=== PATIENT | female | born 1945 | race Caucasian/White ===

== ENCOUNTER 2016-12-30 20:40 | Observation (INO) ==
[2016-12-30] MEDS ORDERED: Ipratropium/Albuterol Neb 3 ML IH ONE (21:08)
--- NOTE | 2016-12-30 21:10 | Emergency Department Note ---
Disposition Clinical Impression: Acute exacerbation of chronic obstructive airways disease Disposition: Admitted As Inpatient Condition: Fair Referrals: NO,PCP [Primary Care Provider] - Forms: ED Satisfaction Letter Time of Disposition: 02:17 (collette GERMAIN HPI - General Chief Complaint: ED Shortness of Breath/Dyspnea Stated Complaint: short of breath Time Seen by Provider: 12/30/16 20:48 Source: patient Mode of arrival: ambulatory Limitations: no limitations Nursing Notes Reviewed: Yes Vital Signs Reviewed: Yes - History of Present Illness 71-year-old female comes to the emergency room complaining of shortness of breath is purposely worsened over the past week she has had cough she has tried using home aerosols to the point where she is using almost every hour she is unable to take steroids Pt Subjective Complaint: shortness of breath Onset (ago): week(s) (1) Context: other (copd) Severity: mild Consistency/Duration: constant Improves with: oxygen Worsens with: nothing Known history of: COPD Associated symptoms: Reports: wheezing. Denies: chest pain, pain with inspiration, fever, cough, sputum production, orthopnea, lower extremity pain, polyuria, polydipsia, parasthesias, palpitations, hemoptysis, diaphoresis, nausea/vomiting, syncope, abdominal pain, rash, sense of impending doom Treatment prior to arrival: oxygen, bronchodilator - Related Data Home Medications Medication Instructions Recorded Confirmed Albuterol Neb [Proventil Neb] 2.5 mg IH Q4HR 12/30/16 12/30/16 Albuterol Sulfate [Albuterol 12/30/16 Inhaler] Aspirin [Lo-Dose Aspirin EC] 81 mg PO 12/30/16 Calcium Citrate/Vitamin D3 1 each PO 12/30/16 [Calcium Citrate - Vit D Caplet] Cholecalciferol (D-3) [Vitamin D] 1,000 unit PO DAILY 12/30/16 12/30/16 Hydrochlorothiazide 25 mg PO DAILY 12/30/16 12/30/16 [place]-3 Fatty Acids [Fish Oil] 600 mg PO 12/30/16 Quinapril HCl [Accupril] 40 mg PO 12/30/16 Red Yeast Rice 600 mg PO 12/30/16 Tramadol HCl [Ultram] 50 mg PO BID PRN 12/30/16 12/30/16 Verapamil HCl [Verapamil ER] 240 mg PO 12/30/16 Allergies Allergy/AdvReac Type Severity Reaction Status Date / Time allantoin Allergy Swelling Verified 12/30/16 20:46 of Lip/Tongue/Throat bee venom protein (honey bee) Allergy Swelling Verified 12/30/16 20:46 of Lip/Tongue/Throat bupropion [From Wellbutrin] Allergy Rash Verified 12/30/16 20:46 Iodinated Contrast Media - Allergy Rash Verified 12/30/16 20:46 Oral and meloxicam Allergy Cramping Verified 12/30/16 20:46 of the Muscles prednisone Allergy Swelling Verified 12/30/16 20:46 of Lip/Tongue/Throat Sulfa (Sulfonamide Allergy Swelling Verified 12/30/16 20:46 Antibiotics) of Lip/Tongue/Throat All systems ED: reviewed and negative except as stated. Constitutional: Denies: fever, chills Eyes: Denies: eye pain ENT ED: Denies: throat pain Cardiovascular: Denies: chest pain, palpitations Respiratory: Reports: cough, dyspnea, wheezes Gastrointestinal: Denies: abdominal pain, nausea, vomiting Genitourinary: Denies: urgency Musculoskeletal: Denies: back pain Integumentary: Denies: abrasion Neurological: Denies: headache Psychiatric: Denies: anxiety Endocrine: Denies: fatigue Hematological/Lymphatic: Denies: easy bruising Allergic/Immunologic: Denies: urticaria Past Medical History - Past Medical History Attestation: Yes The following information was validated with the patient. Source: patient, old records reviewed, nursing notes reviewed Medical history: Reports: COPD, coronary artery disease, GERD, hyperlipidemia, hypertension, osteoporosis - Social History Smoking Status: Never smoker Alcohol use: Reports: none Drug use: Reports: none Physical Exam - General Limitations: no limitations General appearance: alert, anxious, in distress, cachectic - Head Head exam: atraumatic, normocephalic, normal inspection - Eye Eye exam: Present: normal appearance, PERRL, EOMI - ENT ENT exam: normal exam, normal oropharynx, mucous membranes moist, normal external ear exam - Neck Neck exam: Present: normal inspection, full ROM, trachea midline - Chest Chest inspection: Present: normal inspection, symmetric chest wall rise - Respiratory Respiratory exam: Present: normal lung sounds bilaterally - Cardiovascular Cardiovascular exam: Present: regular rate, normal rhythm, normal heart sounds - Abdominal Exam Abdominal exam: Present: soft, Non-Tender, normal bowel sounds. Absent: mass, pulsatile mass - Extremities Exam Extremities exam: Present: normal inspection, full ROM, normal capillary refill. Absent: tenderness, joint swelling, calf tenderness - Expanded Lower Extremity Exam Neurovascular/Tendon exam: Present: normal capillary refill, normal fine/light touch Gait: observed and normal - Back Exam Back exam: Present: normal inspection, full ROM. Absent: muscle spasm - Neurological Exam Neurological exam: Present: alert, oriented X3, CN II-XII intact, normal gait - Psychiatric Psychiatric exam: Present: anxious - Skin Skin exam: Present: warm, dry, intact, normal color Course Course Narrative: pt seen and examined and given aerosols offered IV steroids declined due the fact of prednisone allergy post aerosols now able to hear wheezing prior silent airway sounds recehecked again and still improved able to lie back at this time pt agrees to admission Vital Signs Temperature 97.2 F L 12/30/16 20:41 Pulse Rate 84 12/30/16 20:41 Respiratory Rate 22 12/30/16 20:41 Blood Pressure 153/90 12/30/16 20:41 O2 Sat by Pulse Oximetry 98 12/30/16 20:41 Temperature 97.2 F L 12/30/16 20:41 Pulse Rate 81 12/31/16 01:24 Respiratory Rate 16 12/31/16 01:24 Blood Pressure 161/94 12/31/16 01:24 O2 Sat by Pulse Oximetry 98 12/31/16 01:24 Oxygen Delivery Oxygen Delivery Nasal Cannula Shortness of Breath/Dyspnea - Differential Diagnosis Likely: acute exacerbation of chronic obstructive airways disease - Medical Records Medical records reviewed: Yes I reviewed the patient's medical records. - Lab Data Lab results reviewed: Yes I reviewed the patient's lab results. Result diagrams: 12/30/16 21:20 12/30/16 21:20 Lab Results 12/30/16 12/30/16 12/30/16 Range/Units 21:20 21:20 21:20 WBC 8.0 (4.3-11.1) K/mcL RBC 4.61 (3.82-4.97) M/mcL Hgb 13.9 (11.5-15.4) g/dL Hct 41.1 (35.3-44.9) % MCV 89.2 (83.0-100.0) fL MCH 30.2 (28.0-33.3) pg MCHC 33.8 (31.6-35.5) g/dL RDW 12.9 (11.5-14.5) % Plt Count 319 (140-400) K/mcL MPV 9.9 (9.4-12.4) fL Immature Gran % 0.5 (0-4) % Seg Neutrophils % 60.4 % Lymphocytes % 27.9 % Monocytes % 8.5 % Eosinophils % 2.5 % Basophils % 0.2 % Neutrophils # 4.9 (1.6-8.9) K/mcL Lymphocytes # 2.2 (0.6-4.6) K/mcL Monocytes # 0.7 (0.0-1.3) K/mcL Eosinophils # 0.2 (0.0-0.6) K/mcL Basophils # 0.0 (0.0-0.2) K/mcL PT (9.4-12.1) Seconds INR APTT 29.0 (26.0-36.0) Seconds Sodium 141 (136-145) mEq/L Potassium 3.6 (3.5-4.5) mEq/L Chloride 102 (98-109) mEq/L Carbon Dioxide 24 (19-29) mEq/L BUN 11 (7-20) mg/dL Creatinine 0.82 (0.57-1.11) mg/dL Est GFR ( Amer) > 60 (> 60) Est GFR (Non-Af Amer) > 60 (> 60) BUN/Creatinine Ratio 13 (6-26) Glucose 103 H (70-99) mg/dL Calculated Osmolality 292 (280-300) Calcium 9.5 (8.6-10.8) mg/dL Troponin I (0-0.03) ng/mL B-Natriuretic Peptide (0-100) pg/mL 12/30/16 12/30/16 12/30/16 Range/Units 21:20 21:20 21:20 WBC (4.3-11.1) K/mcL RBC (3.82-4.97) M/mcL Hgb (11.5-15.4) g/dL Hct (35.3-44.9) % MCV (83.0-100.0) fL MCH (28.0-33.3) pg MCHC (31.6-35.5) g/dL RDW (11.5-14.5) % Plt Count (140-400) K/mcL MPV (9.4-12.4) fL Immature Gran % (0-4) % Seg Neutrophils % % Lymphocytes % % Monocytes % % Eosinophils % % Basophils % % Neutrophils # (1.6-8.9) K/mcL Lymphocytes # (0.6-4.6) K/mcL Monocytes # (0.0-1.3) K/mcL Eosinophils # (0.0-0.6) K/mcL Basophils # (0.0-0.2) K/mcL PT 11.0 (9.4-12.1) Seconds INR 1.0 APTT (26.0-36.0) Seconds Sodium (136-145) mEq/L Potassium (3.5-4.5) mEq/L Chloride (98-109) mEq/L Carbon Dioxide (19-29) mEq/L BUN (7-20) mg/dL Creatinine (0.57-1.11) mg/dL Est GFR ( Amer) (> 60) Est GFR (Non-Af Amer) (> 60) BUN/Creatinine Ratio (6-26) Glucose (70-99) mg/dL Calculated Osmolality (280-300) Calcium (8.6-10.8) mg/dL Troponin I 0.01 (0-0.03) ng/mL B-Natriuretic Peptide 11 (0-100) pg/mL - Radiology Data Radiology results reviewed: Yes I reviewed the patient's radiology results. ITS Impressions Chest X-Ray 12/30/16 21:02 IMPRESSION: No acute cardiopulmonary disease. D/ / Derek Ayers MD / Derek Ayers MD Interpreting Provider: Derek Ayers MD - EKG Data EKG attestation: Yes I reviewed and interpreted this EKG. EKG results narrative: Normal sinus rhythm nonspecific T-wave rate 79 TN 142 QRS81 QT [address] segment elevation noted Critical Care Time Critical Care Time: No
[2016-12-30 21:27] LABS: Basophils % 0.2 %; Eosinophils # 0.2 K/mcL (0.0-0.6); Eosinophils % 2.5 %; Hematocrit 41.1 % (35.3-44.9); Hemoglobin 13.9 g/dL (11.5-15.4); Immature Granulocytes % 0.5 % (0-4); Lymphocytes # 2.2 K/mcL (0.6-4.6); Lymphocytes % 27.9 %; Mean Corpuscular HGB Conc 33.8 g/dL (31.6-35.5); Mean Corpuscular Hemoglobin 30.2 pg (28.0-33.3); Mean Corpuscular Volume 89.2 fL (83.0-100.0); Mean Platelet Volume 9.9 fL (9.4-12.4); Monocytes # 0.7 K/mcL (0.0-1.3); Monocytes % 8.5 %; Neutrophils # 4.9 K/mcL (1.6-8.9); Platelet Count 319 K/mcL (140-400); Red Blood Count 4.61 M/mcL (3.82-4.97); Red Cell Distribution Width 12.9 % (11.5-14.5); Segmented Neutrophils % 60.4 %
[2016-12-30 21:43] LABS: BUN/Creatinine Ratio 13 (6-26); Blood Urea Nitrogen 11 mg/dL (7-20); Calcium 9.5 mg/dL (8.6-10.8); Carbon Dioxide 24 mEq/L (19-29); Chloride 102 mEq/L (98-109); Glucose 103 mg/dL (70-99); Osmolality,Calculated 292 (280-300); Potassium 3.6 mEq/L (3.5-4.5); Sodium 141 mEq/L (136-145); eGFR For African Americans > 60 (> 60); eGFR For Non-African Americans > 60 (> 60)
[2016-12-31] MEDS ORDERED: *HR* HYDROcodone/Acet 5/325 mg TABLET PO ONE (01:08)
[2016-12-31] MEDS ORDERED: Naloxone 0.4 MG/ML INJ IVP PRN (03:49)
[2016-12-31] MEDS ORDERED: *HR* Dextrose 50 % in Water (Syg) 50 ML SYRINGE IVP PRN (03:49)
[2016-12-31] MEDS ORDERED: Dextrose Gel 15 GM PO PRN ×2 (03:49)
[2016-12-31] MEDS ORDERED: D5% in Water 1,000 ML IVC PRN (03:49)
[2016-12-31] MEDS: Ipratropium/Albuterol Neb 3 ML IH SCH ×2 (05:17→11:17)
[2016-12-31] MEDS: Insulin LISPRO 300 UNITS/3 ML VIAL SQ SCH ×2 (08:44→12:59)
[2016-12-31] MEDS: Cholecalciferol (D-3) 1,000 UNIT TABLET PO SCH (09:22)
[2016-12-31] MEDS: Verapamil ER (24 HR) 240 MG TABLET.ER PO SCH (13:26)
[2016-12-31] MEDS: Aspirin Enteric Coated 81 MG Tablet PO SCH (13:27)
[2016-12-31] MEDS: Lisinopril 20 MG TABLET PO SCH (13:27)
[2016-12-31] MEDS: Albuterol 2.5 MG/3 ML NEBULIZER IH PRN ×3 (15:58→23:08)
[2016-12-31] MEDS ORDERED: Budesonide/Formoterol 160/4.5 MDI IH SCH (17:10)
[2016-12-31] MEDS: Tiotropium 18 MCG inhalation IH SCH (18:27)
--- NOTE | 2016-12-31 19:34 | Electrocardiograph Report ---
[address] [address] Test Date: 2016-12-30 Pat Name: Clary Tamez Department: [id number] Room: [facility] Gender: F Cardiac Specialist: [id number] : 1945 Requested By: Tri Zapata Order Number: [id number] Reading MD: Rudolph Roy MD Measurements Intervals [place] Rate: 79 P: 72 [place]: 142 QRS: 67 QRSD: 81 T: 72 QT: 383 QTc: 417 Interpretive Statements SINUS RHYTHM Electronically Signed On 12-31-2016 19:32:34 EDT by Rudolph Roy MD
[2017-01-01] MEDS: Albuterol 2.5 MG/3 ML NEBULIZER IH PRN ×4 (04:00→21:09)
[2017-01-01] MEDS: Aspirin Enteric Coated 81 MG Tablet PO SCH (08:12)
[2017-01-01] MEDS: Cholecalciferol (D-3) 1,000 UNIT TABLET PO SCH (08:12)
[2017-01-01] MEDS: Lisinopril 20 MG TABLET PO SCH (08:13)
[2017-01-01] MEDS: Verapamil ER (24 HR) 240 MG TABLET.ER PO SCH (08:13)
[2017-01-01] MEDS ORDERED: FATTY ACIDS PO SCH (09:00)
[2017-01-01] MEDS ORDERED: OMEGA PO SCH (09:00)
[2017-01-01] MEDS: Tiotropium 18 MCG inhalation IH SCH (09:28)
[2017-01-01 09:52] LABS: Basophils # 0.1 K/mcL (0.0-0.2); Basophils % 0.6 %; Eosinophils # 0.3 K/mcL (0.0-0.6); Eosinophils % 3.5 %; Hematocrit 39.5 % (35.3-44.9); Hemoglobin 13.1 g/dL (11.5-15.4); Immature Granulocytes % 0.4 % (0-4); Lymphocytes % 26.3 %; Mean Corpuscular HGB Conc 33.2 g/dL (31.6-35.5); Mean Corpuscular Hemoglobin 30.1 pg (28.0-33.3); Mean Corpuscular Volume 90.8 fL (83.0-100.0); Mean Platelet Volume 10.2 fL (9.4-12.4); Monocytes # 0.8 K/mcL (0.0-1.3); Monocytes % 10.4 %; Neutrophils # 4.5 K/mcL (1.6-8.9); Platelet Count 305 K/mcL (140-400); Red Blood Count 4.35 M/mcL (3.82-4.97); Red Cell Distribution Width 13.2 % (11.5-14.5); Segmented Neutrophils % 58.8 %
--- NOTE | 2017-01-01 10:06 | Internal Med History&Physical ---
Date of Encounter: 12/31/16 Time of Encounter: 16:45 Assessment and Plan (1) Acute exacerbation of chronic obstructive airways disease Current visit: Yes Status: Acute She reports she has an allergy to steroids. I will add Spiriva and Singulair and continue Levaquin. Further workup will be done as needed. Internal Medicine - H&P: HPI Chief complaint: Dyspnea Admitted From: Home Plans for Post Hospital Care: Home History of present illness: Ms. Tamez is a 71 year old female who came to emergency room stating she had increasing dyspnea over the preceding week. She states she has had cough but minimal productivity. When she did not improve she came to emergency room. She was evaluated and felt to have exacerbation of COPD and was admitted to [facility] floor for ongoing care needs. Her respiratory history significant for having smoked from age [age] up to 1 pack per day. She has not had PFTs but has been told she has COPD. She does not wear home oxygen and has not been tested for sleep apnea. Past Med Surg Social Fam HX - Past Medical History Medical history: COPD, coronary artery disease, GERD, hyperlipidemia, hypertension, osteoporosis, other Psychiatric history: no psych history - Past Surgical History Surgical History: appendectomy, hysterectomy - Social History Smoking Status: Former smoker Smokeless Tobacco Status: No Alcohol use: none Drug use: none - Family History Mother Living Status: Age at : 87 Cause of : "Bad lung" Hx Family Cardiac Disorders: No Hx Family Respiratory Disorders: Yes (emphysema) Hx Family Cancer: No Hx Family GI Disorders: Yes (IBS) Hx Family Genitourinary Disorders: No Hx Family Endocrine Disorder: No Hx Family Musculoskeletal Disorders: No Hx Family Neuromuscular Disorders: No Hx Family Neurologic Disorders: No Hx Family HEENT Disorders: No Hx Family Autoimmune Disorders: No Hx Family Reproductive Disorders: No Hx Family Psychosocial Disorders: No Hx Family Medical Disorders: No Internal Medicine - H&P: Meds Albuterol Neb [Proventil Neb] 2.5 mg IH Q4HR 12/30/16 [History] Albuterol Sulfate [Albuterol Inhaler] 1 puff IH PRN PRN 12/30/16 [History] Aspirin [Lo-Dose Aspirin EC] 81 mg PO DAILY 12/30/16 [History] Calcium Citrate/Vitamin D3 [Calcium Citrate - Vit D Caplet] 1 each PO DAILY [History] Cholecalciferol (D-3) [Vitamin D] 1,000 unit PO DAILY 12/30/16 [History] Hydrochlorothiazide 25 mg PO DAILY 12/30/16 [History] [place]-3 Fatty Acids [Fish Oil] 600 mg PO DAILY 12/30/16 [History] Quinapril HCl [Accupril] 40 mg PO DAILY 12/30/16 [History] Tramadol HCl [Ultram] 50 mg PO BID PRN 12/30/16 [History] Verapamil HCl [Verapamil ER] 240 mg PO DAILY 12/30/16 [History] Allergies allantoin Allergy (Verified 12/30/16 20:46) Swelling of Lip/Tongue/Throat bee venom protein (honey bee) Allergy (Verified 12/30/16 20:46) Swelling of Lip/Tongue/Throat bupropion [From Wellbutrin] Allergy (Verified 12/30/16 20:46) Rash Iodinated Contrast Media - Oral and Allergy (Verified 12/30/16 20:46) Rash meloxicam Allergy (Verified 12/30/16 20:46) Cramping of the Muscles prednisone Allergy (Verified 12/30/16 20:46) Swelling of Lip/Tongue/Throat Sulfa (Sulfonamide Antibiotics) Allergy (Verified 12/30/16 20:46) Swelling of Lip/Tongue/Throat All Systems PM: A 10-system review of systems was performed and is negative for pertinent findings except as documented above in the HPI. Review of systems: General: Her weight has been stable since then July 2014 [facility] hospitalization Cardiovascular: He has a history of hypertension but denies NH heart failure angina DVT or pulmonary embolus. She thinks she had a heart catheter approximately 2003 in [place] which was unremarkable. Respiratory: As per history of present illness GI: She has a hiatal hernia with GERD. She has reticular disease of the colon. She denies disorders of her liver gallbladder or exocrine pancreas : No history of hematuria dysuria or kidney stones line neurologic: No history of large distribution strokes or seizures Endocrine: She has hyperlipidemia but no known diabetes or thyroid disease Hematology/oncology: She had cervical dysplasia with hysterectomy which was apparently curative several years ago. She denies other internal malignancies or anemia Psychiatric: She denies anxiety depression or other mental health issues Musculoskeletal: She has DJD and osteoporosis but no known gout - Constitutional Vitals: Temp Pulse Resp BP Pulse Ox 97.9 F 86 18 152/64 100 01/01/17 06:12 01/01/17 06:12 01/01/17 06:12 01/01/17 06:12 01/01/17 06:36 Exam: Gen.: She is a well developed well-nourished female who appears dyspneic HEENT head is atraumatic and normal cephalic. Eyes: EOMI. There is no scleral icterus. Mouth: Mucosa is moist. Neck: Supple and nontender. There is no thyromegaly or adenopathy noted. Heart: Regular without murmurs gallops or ectopics. Lungs: She has prolonged expiratory phase and mild diffuse wheezing. No inspiratory crackles are heard. Abdomen: Soft and nontender. No masses or guarding are noted. Extremities: There is no cyanosis edema or clubbing noted. Dorsalis pedis and posttibial pulses are 1-2 over 2 bilaterally. Neurologic: Mental status: She is talkative and a good historian. Cranial nerves: Smile is symmetric. Forehead wrinkles bilaterally. Tongue protrudes midline. EOMI. Motor: There is no pronator drift. Cerebellar: Finger to nose is intact bilaterally. Skin: Warm and dry Internal Med - H&P Results - Labs CBC & Chem 7: 01/01/17 07:30 12/30/16 21:20 Labs: Short CBC 01/01/17 Range/Units 07:30 WBC 7.7 (4.3-11.1) K/mcL Hgb 13.1 (11.5-15.4) g/dL Hct 39.5 (35.3-44.9) % Plt Count 305 (140-400) K/mcL Neutrophils # 4.5 (1.6-8.9) K/mcL
--- NOTE | 2017-01-01 10:20 | Internal Med Progress Note ---
Date of Encounter: 01/01/17 Time of Encounter: 10:10 - Assessment and plan (1) Acute exacerbation of chronic obstructive airways disease Current Visit: Yes Status: Acute Assessment and plan: Continue Levaquin, Singulair, Spiriva, and prn albuterol. - Subjective Interval history: January 01. She has no new complaints and states she feels improved but not back to her baseline. She reports she had an allergic reaction to Wellbutrin in the past and went to the emergency room where she received steroids which seemed to worsen her allergic response. She denies use of steroids before or after that single episode. - Constitutional Vitals: Temp Pulse Resp BP Pulse Ox 97.9 F 86 18 152/64 100 01/01/17 06:12 01/01/17 06:12 01/01/17 06:12 01/01/17 06:12 01/01/17 06:36 Exam: She is resting more Comfortably in bed. She has audible expiratory wheezing with prolonged expiratory phase still present. I reviewed her medications and lab results. Internal Medicine: Result - Labs CBC & Chem 7: 01/01/17 07:30 12/30/16 21:20 Labs: Short CBC 01/01/17 Range/Units 07:30 WBC 7.7 (4.3-11.1) K/mcL Hgb 13.1 (11.5-15.4) g/dL Hct 39.5 (35.3-44.9) % Plt Count 305 (140-400) K/mcL Neutrophils # 4.5 (1.6-8.9) K/mcL - ABG Interpretation ABG results: PT/INR, D-dimer PT 11.0 Seconds (9.4-12.1) 12/30/16 21:20 Consult Discharge Plan - Plan Referrals: NO,PCP [Primary Care Provider] - 1 week
[2017-01-02] MEDS: Ipratropium/Albuterol Neb 3 ML IH SCH (08:02)
[2017-01-02] MEDS: Insulin LISPRO 300 UNITS/3 ML VIAL SQ SCH (08:02)
[2017-01-02] MEDS: Aspirin Enteric Coated 81 MG Tablet PO SCH (09:10)
[2017-01-02] MEDS: Verapamil ER (24 HR) 240 MG TABLET.ER PO SCH (09:12)
[2017-01-02] MEDS: Cholecalciferol (D-3) 1,000 UNIT TABLET PO SCH (09:12)
[2017-01-02] MEDS: Lisinopril 20 MG TABLET PO SCH (09:12)
[2017-01-02] MEDS: Albuterol 2.5 MG/3 ML NEBULIZER IH PRN ×4 (09:15→21:25)
[2017-01-02] MEDS: Tiotropium 18 MCG inhalation IH SCH (09:17)
--- NOTE | 2017-01-02 09:47 | Internal Med Progress Note ---
Date of Encounter: 01/02/17 Time of Encounter: 09:35 - Assessment and plan (1) Acute exacerbation of chronic obstructive airways disease Current Visit: Yes Status: Acute Assessment and plan: January 01. Continue Levaquin, Singulair, Spiriva, and prn albuterol. January 02. Will give IV Solu-Medrol and inhaled Symbicort in addition to continuing previously ordered medications. Will also give Benadryl. - Subjective Interval history: January 01. She has no new complaints and states she feels improved but not back to her baseline. She reports she had an allergic reaction to Wellbutrin in the past and went to the emergency room where she received steroids which seemed to worsen her allergic response. She denies use of steroids before or after that single episode. January 02. She feels minimally improved. She admits she is not getting much better and has decided she should try steroids again to see if further improvement can be gained. - Constitutional Vitals: Temp Pulse Resp BP Pulse Ox 97.8 F 80 18 115/70 95 01/02/17 07:59 01/02/17 07:59 01/02/17 09:19 01/02/17 07:59 01/02/17 09:19 Exam: She is sitting up in bed and appears dyspneic at rest. Her speech is very appropriate and logical and she understands she is asking for steroids despite stating she had a "allergic reaction" to steroids in the past. Internal Medicine: Result - Labs CBC & Chem 7: 01/01/17 07:30 12/30/16 21:20 Labs: Short CBC 01/01/17 Range/Units 07:30 WBC 7.7 (4.3-11.1) K/mcL Hgb 13.1 (11.5-15.4) g/dL Hct 39.5 (35.3-44.9) % Plt Count 305 (140-400) K/mcL Neutrophils # 4.5 (1.6-8.9) K/mcL - ABG Interpretation ABG results: PT/INR, D-dimer PT 11.0 Seconds (9.4-12.1) 12/30/16 21:20 Consult Discharge Plan - Plan Referrals: NO,PCP [Primary Care Provider] - 1 week
[2017-01-02] MEDS: Benzonatate 100 MG CAPSULE PO SCH ×3 (11:13→20:59)
[2017-01-02] MEDS: Budesonide/Formoterol 160/4.5 MDI IH SCH ×2 (13:03→21:25)
[2017-01-03] MEDS: Albuterol 2.5 MG/3 ML NEBULIZER IH PRN ×5 (05:20→21:24)
[2017-01-03] MEDS: Budesonide/Formoterol 160/4.5 MDI IH SCH ×2 (08:28→21:24)
[2017-01-03] MEDS: Tiotropium 18 MCG inhalation IH SCH (08:28)
[2017-01-03] MEDS: Aspirin Enteric Coated 81 MG Tablet PO SCH (08:40)
[2017-01-03] MEDS: Verapamil ER (24 HR) 240 MG TABLET.ER PO SCH (08:40)
[2017-01-03] MEDS: Benzonatate 100 MG CAPSULE PO SCH ×3 (08:41→21:12)
[2017-01-03] MEDS: Lisinopril 20 MG TABLET PO SCH (08:41)
[2017-01-03] MEDS: Cholecalciferol (D-3) 1,000 UNIT TABLET PO SCH (08:41)
--- NOTE | 2017-01-03 09:15 | Internal Med Progress Note ---
Date of Encounter: 01/03/17 Time of Encounter: 09:05 - Assessment and plan (1) Acute exacerbation of chronic obstructive airways disease Current Visit: Yes Status: Acute Assessment and plan: January 01. Continue Levaquin, Singulair, Spiriva, and prn albuterol. January 02. Will give IV Solu-Medrol and inhaled Symbicort in addition to continuing previously ordered medications. Will also give Benadryl. January 03. Continue Solu-Medrol, Levaquin, albuterol nebs, Singulair, Symbicort , and Spiriva. - Subjective Interval history: January 01. She has no new complaints and states she feels improved but not back to her baseline. She reports she had an allergic reaction to Wellbutrin in the past and went to the emergency room where she received steroids which seemed to worsen her allergic response. She denies use of steroids before or after that single episode. January 02. She feels minimally improved. She admits she is not getting much better and has decided she should try steroids again to see if further improvement can be gained. January 03. Her dyspnea is minimally changed. She reports her cough has little productivity. - Constitutional Vitals: Temp Pulse Resp BP Pulse Ox 97.6 F 99 22 129/77 97 01/03/17 06:32 01/03/17 06:32 01/03/17 08:29 01/03/17 06:32 01/03/17 08:29 Exam: She has prolonged expiratory phase and mild diffuse wheezing. Her heart is regular without ectopics. Her affect is bright and cheerful. I reviewed her vitals, labs, and medications Internal Medicine: Result - Labs CBC & Chem 7: 01/01/17 07:30 12/30/16 21:20 - ABG Interpretation ABG results: PT/INR, D-dimer PT 11.0 Seconds (9.4-12.1) 12/30/16 21:20 Consult Discharge Plan - Plan Referrals: NO,PCP [Primary Care Provider] - 1 week
[2017-01-03] MEDS: Ondansetron ODT 4 MG TAB.RAPDIS SL PRN (13:22)
[2017-01-04] MEDS: Albuterol 2.5 MG/3 ML NEBULIZER IH PRN ×3 (04:17→11:15)
[2017-01-04] MEDS: Verapamil ER (24 HR) 240 MG TABLET.ER PO SCH (08:28)
[2017-01-04] MEDS: Ondansetron ODT 4 MG TAB.RAPDIS SL PRN (08:29)
[2017-01-04] MEDS: Aspirin Enteric Coated 81 MG Tablet PO SCH (08:30)
[2017-01-04] MEDS: Benzonatate 100 MG CAPSULE PO SCH (08:30)
[2017-01-04] MEDS: Cholecalciferol (D-3) 1,000 UNIT TABLET PO SCH (08:30)
[2017-01-04] MEDS: Lisinopril 20 MG TABLET PO SCH (08:31)
[2017-01-04] MEDS: Tiotropium 18 MCG inhalation IH SCH (08:47)
[2017-01-04] MEDS: Budesonide/Formoterol 160/4.5 MDI IH SCH (08:47)
--- NOTE | 2017-01-04 10:22 | Discharge Summary ---
Date of Encounter: 01/04/17 Time of Encounter: 10:05 - Discharge Diagnosis (1) Acute exacerbation of chronic obstructive airways disease Priority: Primary Status: Acute - Discharge Medications Prescriptions: Benzonatate [Tessalon] 100 mg PO TID #6 capsule Budesonide/Formoterol 160/4.5 [Symbicort 160/4.5] 2 puff IH BIDR #1 inhaler Levofloxacin [Levaquin] 500 mg PO DAILY #2 tablet Montelukast [Singulair] 10 mg PO DAILY #30 tablet PredniSONE 20 mg PO BIDWM #10 tablet Tiotropium [Spiriva] 18 mcg IH DAILY #30 inh Home Medications: Albuterol Neb [Proventil Neb] 2.5 mg IH Q4HR 12/30/16 [History] Albuterol Sulfate [Albuterol Inhaler] 1 puff IH PRN PRN 12/30/16 [History] Aspirin [Lo-Dose Aspirin EC] 81 mg PO DAILY 12/30/16 [History] Calcium Citrate/Vitamin D3 [Calcium Citrate - Vit D Caplet] 1 each PO DAILY [History] Cholecalciferol (D-3) [Vitamin D] 1,000 unit PO DAILY 12/30/16 [History] Hydrochlorothiazide 25 mg PO DAILY 12/30/16 [History] [place]-3 Fatty Acids [Fish Oil] 600 mg PO DAILY 12/30/16 [History] Quinapril HCl [Accupril] 40 mg PO DAILY 12/30/16 [History] Tramadol HCl [Ultram] 50 mg PO BID PRN 12/30/16 [History] Verapamil HCl [Verapamil ER] 240 mg PO DAILY 12/30/16 [History] Benzonatate [Tessalon] 100 mg PO TID #6 capsule 01/04/17 [Rx] Budesonide/Formoterol 160/4.5 [Symbicort 160/4.5] 2 puff IH BIDR #1 inhaler 09/22 [Rx] Levofloxacin [Levaquin] 500 mg PO DAILY #2 tablet 01/04/17 [Rx] Montelukast [Singulair] 10 mg PO DAILY #30 tablet 01/04/17 [Rx] PredniSONE 20 mg PO BIDWM #10 tablet 01/04/17 [Rx] Tiotropium [Spiriva] 18 mcg IH DAILY #30 inh 01/04/17 [Rx] Allergies/Adverse Reactions: Allergies allantoin Allergy (Verified 12/30/16 20:46) Swelling of Lip/Tongue/Throat bee venom protein (honey bee) Allergy (Verified 12/30/16 20:46) Swelling of Lip/Tongue/Throat bupropion [From Wellbutrin] Allergy (Verified 12/30/16 20:46) Rash Iodinated Contrast Media - Oral and Allergy (Verified 12/30/16 20:46) Rash meloxicam Allergy (Verified 12/30/16 20:46) Cramping of the Muscles prednisone Allergy (Verified 12/30/16 20:46) Swelling of Lip/Tongue/Throat Sulfa (Sulfonamide Antibiotics) Allergy (Verified 12/30/16 20:46) Swelling of Lip/Tongue/Throat Date of admission: 12/31/16 02:04 Primary care physician: Desmond Maier M.D. - Patient Status Disposition: Home, Self-Care Condition: Fair Functional capacity at discharge: independent ambulation Overall status at discharge: patient is progressing back to baseline - Discharge Instructions Follow Up With: Desmond Maier MD [Partnered Physician] - 1 week - Diet and Activity Activity: resume usual activities as tolerated Diet: advance to your usual diet Hospital course: Ms. Tamez is a 71 year old female who came to emergency room stating she had increasing dyspnea over the preceding week. She states she has had cough but minimal productivity. When she did not improve she came to emergency room. She was evaluated and felt to have exacerbation of COPD and was admitted to [facility] floor for ongoing care needs. Initial orders were written by the emergency room physician. I saw her on January 01 and performed the history and physical. She initially reported she had an allergy to steroids. She was given Spiriva, Singulair, and Levaquin. Lactobacillus was also given during hospitalization. On January 02 she was unimproved and stated she had decided she should try steroids again to see if she could have further improvement. She was started on Symbicort and Solu- Medrol with Benadryl pretreatment before the first dose. She had no allergic reactions at all and continued the use of both of inhaled and IV steroids during her hospital stay. Her dyspnea gradually lessened and on January 04 she felt stable for discharge home. Room air oximetry showed saturation of 91% so supplemental oxygen will not be ordered. She will follow with her PCP Dr. Maier as scheduled January 05. - Time Spent with Patient Total time spent providing and/or coordinating discharge services: - Constitutional Vitals: Temp Pulse Resp BP Pulse Ox 97.8 F 91 20 146/80 96 01/04/17 07:23 01/04/17 07:23 01/04/17 08:43 01/04/17 07:23 01/04/17 09:02
[2017-01-04 10:37] VITALS: BP 146/79
== END 2017-01-04 12:50 | disposition home or self-care (01) ==
LOC: INPPIK 20:40 → EMEROOPIK 20:40 → INPPIK 12-31 03:01
PROVIDERS: ADMIT Internal Medicine; ATTEND Internal Medicine

== ENCOUNTER 2018-04-03 14:56 | Inpatient (IN) ==
[2018-04-03] MEDS ORDERED: Ipratropium/Albuterol Neb 3 ML IH ONE ×2 (15:21→15:22)
[2018-04-03] MEDS ORDERED: methylPREDNISolone 125 MG/2 ML VIAL IM STA (15:21)
--- NOTE | 2018-04-03 15:48 | Emergency Department Note ---
Disposition Clinical Impression: Acute exacerbation of chronic obstructive airways disease Disposition: Admitted As Inpatient Condition: Good SOB HPI - General Chief Complaint: ED Shortness of Breath/Dyspnea Stated Complaint: SHORTNESS OF BREATH Time Seen by Provider: 04/03/18 15:06 Source: patient Mode of arrival: private vehicle Limitations: no limitations Nursing Notes Reviewed: Yes Vital Signs Reviewed: Yes - History of Present Illness Patient presents to the ED complaining of shortness of breath is not going on for approximately 1 week and worsening over the past 3 days. She states her chest feels tight and she has been wheezing. She reports a cough occasionally productive of white phlegm. She has had some rhinorrhea and sneezing but no nasal congestion or sore throat. No fever or chills. No lower extremity swelling. She has a history of COPD and reports compliance with all of her medications with her last breathing treatment at home around 2 PM today. She is on Advair, Flovent and Spiriva and uses albuterol as needed. She does not wear home oxygen. She has not been on steroids since January. No recent admissions for COPD exacerbations. - Related Data Home Medications Medication Instructions Recorded Confirmed Albuterol Neb [Proventil Neb] 2.5 mg IH Q4HR 12/30/16 04/03/18 Albuterol Sulfate [Albuterol 1 puff IH PRN PRN 12/30/16 04/03/18 Inhaler] Aspirin [Lo-Dose Aspirin EC] 81 mg PO DAILY 12/30/16 04/03/18 Calcium Citrate/Vitamin D3 1 each PO DAILY 12/30/16 04/03/18 [Calcium Citrate - Vit D Caplet] Cholecalciferol (D-3) [Vitamin D] 1,000 unit PO DAILY 12/30/16 04/03/18 [place]-3 Fatty Acids [Fish Oil] 600 mg PO DAILY 12/30/16 04/03/18 Quinapril HCl [Accupril] 40 mg PO DAILY 12/30/16 04/03/18 Verapamil HCl [Verapamil ER] 240 mg PO DAILY 12/30/16 04/03/18 hydroCHLOROthiazide 25 mg PO DAILY 12/30/16 04/03/18 [Hydrochlorothiazide] Previous Rx's Medication Instructions Recorded Budesonide/Formoterol 160/4.5 2 puff IH BIDR #1 inhaler 01/04/17 [Symbicort 160/4.5] Tiotropium [Spiriva] 18 mcg IH DAILY #30 inh 01/04/17 Allergies Allergy/AdvReac Type Severity Reaction Status Date / Time allantoin Allergy Swelling Verified 12/30/16 20:46 of Lip/Tongue/Throat bee venom protein (honey bee) Allergy Swelling Verified 12/30/16 20:46 of Lip/Tongue/Throat bupropion [From Wellbutrin] Allergy Rash Verified 12/30/16 20:46 Iodinated Contrast- Oral and Allergy Rash Verified 12/30/16 20:46 IV Dye [Iodinated Contrast Media - Oral and] meloxicam Allergy Cramping Verified 12/30/16 20:46 of the Muscles Sulfa (Sulfonamide Allergy Swelling Verified 12/30/16 20:46 Antibiotics) of Lip/Tongue/Throat Constitutional: Denies: fever, chills, weakness, weight change Eyes: Denies: eye pain, eye discharge, vision change ENT ED: Denies: ear pain, throat pain, dental pain, hearing loss, epistaxis, congestion, dysphagia Cardiovascular: Denies: chest pain, palpitations, dyspnea on exertion, edema, syncope Respiratory: Reports: cough, dyspnea, wheezes. Denies: hemoptysis, stridor Gastrointestinal: Denies: abdominal pain, nausea, vomiting, diarrhea, constipation, hematemesis, melena, hematochezia Genitourinary: Denies: dysuria, frequency, hematuria, discharge Musculoskeletal: Denies: back pain, neck pain, arthralgia, myalgia Integumentary: Denies: rash, abrasion, lesions Neurological: Denies: headache, weakness, numbness, paresthesias, confusion, abnormal gait, vertigo Psychiatric: Denies: anxiety, depression, suicidal thoughts, homicidal thoughts , auditory hallucinations, visual hallucinations Endocrine: Denies: fatigue Hematological/Lymphatic: Denies: easy bleeding, easy bruising Allergic/Immunologic: Denies: facial swelling, urticaria Past Medical History - Past Medical History Medical history: Reports: COPD, coronary artery disease, GERD, hyperlipidemia, hypertension, osteoporosis, other Surgical history: Reports: appendectomy, hysterectomy Psychiatric history: Reports: no psych history - Social History Smoking Status: Former smoker Smokeless Tobacco Status: No Alcohol use: Reports: none Drug use: Reports: none Physical Exam - General Limitations: no limitations General appearance: alert, in no apparent distress - Head Head exam: atraumatic, normocephalic, normal inspection - Eye Eye exam: Present: normal appearance, PERRL, EOMI - ENT ENT exam: normal exam, normal oropharynx, mucous membranes moist - Neck Neck exam: Present: normal inspection, full ROM, trachea midline - Chest Chest inspection: Present: normal inspection, symmetric chest wall rise - Respiratory Respiratory exam: Present: wheezes - Expanded Respiratory Exam Location: wheezes: Left, Right, Upper, Lower, decreased breath sounds: Left, Right, Upper, Lower - Cardiovascular Cardiovascular exam: Present: regular rate, normal rhythm, normal heart sounds - Abdominal Exam Abdominal exam: Present: soft, Non-Tender. Absent: tenderness, distention, guarding, rebound, rigidity - Extremities Exam Extremities exam: Present: normal inspection, full ROM. Absent: tenderness, pedal edema - Back Exam Back exam: Present: normal inspection, full ROM. Absent: tenderness - Neurological Exam Neurological exam: Present: alert, oriented X3 - Psychiatric Psychiatric exam: Present: normal affect, normal mood - Skin Skin exam: Present: warm, dry, intact, normal color Course Course Narrative: Patient presents the ED with increasing shortness of breath and wheezing over the past few days with history of COPD. She is audibly wheezing with poor aeration on exam but is not hypoxic or in acute distress. Will give nebulizer treatments, steroids and obtain chest x-ray. I suspect COPD exacerbation versus less likely pneumonia or CHF. - Reevaluation(s) Reevaluation #1: Patient reports feeling better than when she arrives but still feels tight and is still wheezing. On repeat exam she does have improved air movement but is still wheezing. Oxygen saturations have remained in the mid to high 90s on 2 L nasal cannula. Chest x-ray is normal. Discussed with patient admission for continued aggressive treatment and she is in agreement. We have paged the hospitalist on-call, Dr. Lopez. Time: 16:30 Reevaluation #2: We have re-paged and left messages for the hospitalist. Still awaiting callback at this time. Time: 17:29 Reevaluation #3: I spoke to the hospitalist on-call, Dr. Lopez, who has agreed to accept the patient. Time: 17:35 Vital Signs Temperature 98.4 F 04/03/18 14:58 Pulse Rate 105 04/03/18 14:58 Respiratory Rate 20 04/03/18 14:58 Blood Pressure 189/103 04/03/18 14:58 O2 Sat by Pulse Oximetry 97 04/03/18 14:58 Temperature 97.5 F L 04/04/18 02:53 Pulse Rate 105 04/04/18 02:53 Respiratory Rate 22 04/04/18 02:53 Blood Pressure 177/92 04/04/18 02:53 O2 Sat by Pulse Oximetry 97 04/04/18 02:53 Oxygen Delivery Oxygen Delivery Nasal Cannula Shortness of Breath/Dyspnea - Differential Diagnosis Likely: acute exacerbation of chronic obstructive airways disease. Unlikely: congestive heart failure, pneumonia, pulmonary embolism - Medical Records Medical records reviewed: Yes I reviewed the patient's medical records. - Lab Data Result diagrams: 04/03/18 19:55 04/03/18 19:55 - Radiology Data Radiology results reviewed: Yes I reviewed the patient's radiology results. ITS Impressions Chest X-Ray 04/03/18 15:22 IMPRESSION: No acute cardiopulmonary disease. D/ / Katelynn Marie MD / Katelynn Marie MD Interpreting Provider: Katelynn Marie MD - EKG Data EKG attestation: Yes I reviewed and interpreted this EKG. EKG shows normal: Reports: sinus rhythm Rate: Reports: normal, tachycardia Rhythm: Reports: NSR [place]/QRS: Reports: normal Interpretation: Reports: no acute changes, nonspecific ST-T wave changes
[2018-04-03] MEDS ORDERED: Naloxone 0.4 MG/ML INJ IVP PRN ×2 (17:53→18:20)
[2018-04-03] MEDS ORDERED: Ipratropium/Albuterol Neb 3 ML IH SCH (19:00)
[2018-04-03] MEDS ORDERED: Nitroglycerin 0.4 MG TAB.SUBL SL PRN (19:29)
[2018-04-03] MEDS ORDERED: *HR* Morphine 2 MG/ML SYRINGE IVP PRN (19:30)
[2018-04-03] MEDS ORDERED: Aspirin 325 MG TABLET PO ONE (19:30)
[2018-04-03 20:05] LABS: Basophils % 0.2 %; Hematocrit 37.2 % (35.3-44.9); Hemoglobin 12.3 g/dL (11.5-15.4); Immature Granulocytes % 0.6 % (0-4); Lymphocytes # 0.6 K/mcL (0.6-4.6); Lymphocytes % 6.1 %; Mean Corpuscular HGB Conc 33.1 g/dL (31.6-35.5); Mean Corpuscular Hemoglobin 29.4 pg (28.0-33.3); Mean Corpuscular Volume 88.8 fL (83.0-100.0); Monocytes # 0.2 K/mcL (0.0-1.3); Monocytes % 2.1 %; Neutrophils # 9.2 K/mcL (1.6-8.9); Platelet Count 287 K/mcL (140-400); Red Blood Count 4.19 M/mcL (3.82-4.97); Red Cell Distribution Width 13.3 % (11.5-14.5)
[2018-04-03] MEDS: Budesonide/Formoterol 160/4.5 MDI IH SCH (20:11)
[2018-04-03] MEDS: Ipratropium/Albuterol Neb 3 ML IH SCH (20:11)
[2018-04-03 20:20] LABS: Alanine Aminotransferase 19 Units/L (7-52); Albumin 4.8 g/dL (3.5-5.7); Albumin/Globulin Ratio 1.9 (1.1-2.2); Alkaline Phosphatase 53 Units/L (34-104); Aspartate Amino Transferase 17 Units/L (13-39); BUN/Creatinine Ratio 16 (6-26); Bilirubin,Total 0.2 mg/dL (0.3-1.0); Blood Urea Nitrogen 15 mg/dL (8-23); Calcium 9.5 mg/dL (8.6-10.3); Carbon Dioxide 26 mEq/L (23-29); Chloride 102 mEq/L (98-107); Globulin 2.5 g/dL (2.4-3.5); Glucose 169 mg/dL (70-105); Magnesium 1.7 mg/dL (1.6-2.6); Osmolality,Calculated 295 (280-300); Potassium 3.5 mEq/L (3.5-5.1); Sodium 140 mEq/L (136-145); Total Protein 7.3 g/dL (6.4-8.9); eGFR For African Americans > 60 (> 60); eGFR For Non-African Americans > 60 (> 60)
[2018-04-04] MEDS: Ipratropium/Albuterol Neb 3 ML IH SCH ×3 (00:02→08:06)
[2018-04-04 02:59] LABS: Basophils % 0.1 %; Hemoglobin 12.3 g/dL (11.5-15.4); Immature Granulocytes % 1.8 % (0-4); Lymphocytes # 0.6 K/mcL (0.6-4.6); Lymphocytes % 5.1 %; Mean Corpuscular HGB Conc 33.2 g/dL (31.6-35.5); Mean Corpuscular Hemoglobin 29.8 pg (28.0-33.3); Mean Corpuscular Volume 89.6 fL (83.0-100.0); Mean Platelet Volume 10.1 fL (9.4-12.4); Monocytes # 0.2 K/mcL (0.0-1.3); Neutrophils # 10.3 K/mcL (1.6-8.9); Platelet Count 278 K/mcL (140-400); Red Blood Count 4.13 M/mcL (3.82-4.97); Red Cell Distribution Width 13.4 % (11.5-14.5)
[2018-04-04 03:11] LABS: BUN/Creatinine Ratio 16 (6-26); Blood Urea Nitrogen 13 mg/dL (8-23); Calcium 9.6 mg/dL (8.6-10.3); Carbon Dioxide 23 mEq/L (23-29); Chloride 102 mEq/L (98-107); Glucose 182 mg/dL (70-105); Osmolality,Calculated 293 (280-300); Potassium 3.7 mEq/L (3.5-5.1); Sodium 139 mEq/L (136-145); eGFR For African Americans > 60 (> 60); eGFR For Non-African Americans > 60 (> 60)
[2018-04-04] MEDS: cefTRIAXone 1,000 MG in Water for inj. (sterile) 20 ML 10 ML IVP SCH (06:53)
[2018-04-04] MEDS: Azithromycin 500 MG in D5% in Water 250 ML IVPB SCH (06:53)
[2018-04-04] MEDS: hydroCHLOROthiazide 25 MG TABLET PO SCH (06:54)
[2018-04-04] MEDS: Lisinopril 20 MG TABLET PO SCH (06:54)
[2018-04-04] MEDS: Verapamil ER (24 HR) 240 MG TABLET.ER PO SCH (07:56)
[2018-04-04] MEDS: Aspirin Enteric Coated 81 MG Tablet PO SCH (07:56)
[2018-04-04] MEDS: Cholecalciferol (D-3) 1,000 UNIT TABLET PO SCH (07:56)
[2018-04-04] MEDS: Lactobacillus 1 EACH CAP.SPRINK PO SCH ×2 (07:56→21:38)
[2018-04-04] MEDS: (Omega-3 Fatty Acids [Fish Oil] 600 MG) PO SCH (08:02)
[2018-04-04] MEDS: Tiotropium 18 MCG inhalation IH SCH (10:20)
[2018-04-04] MEDS: Budesonide/Formoterol 160/4.5 MDI IH SCH ×2 (10:20→21:16)
--- NOTE | 2018-04-04 11:09 | Internal Med History&Physical ---
Date of Encounter: 04/04/18 Time of Encounter: 10:45 Assessment and Plan (1) Acute exacerbation of chronic obstructive airways disease Current visit: Yes Status: Acute She was given Rocephin, Zithromax, and Solu-Medrol in emergency room. These will be continued with lactobacillus. Further workup will be done as needed. (2) Hypertension Current visit: Yes Status: Chronic Continue Accupril and HCTZ. Qualifiers: Hypertension type: essential hypertension Qualified Code(s): I10 - Essential (primary) hypertension Internal Medicine - H&P: HPI Chief complaint: Dyspnea Admitted From: Emergency Dept Plans for Post Hospital Care: Home History of present illness: Ms. Tamez is a 72 year old female who came to emergency room complaining of increased dyspnea over the past week with significant worsening over the past 3 days. She reports a cough that was nonproductive. She had a headache. She denies pain, nausea vomiting or diarrhea. She was evaluated in emergency room and felt to have exacerbation of COPD. She was admitted to [facility] floor for ongoing care needs. Her respiratory history is significant for having smoked from age [age] up to 1 pack per day. She has not had PFTs but has been told she has COPD. She does not wear home oxygen and has not been tested for sleep apnea. Past Med Surg Social Fam HX - Past Medical History Medical history: COPD, coronary artery disease, GERD, hyperlipidemia, hypertension, osteoporosis, other Additional medical history: DIVERTICULITIS Psychiatric history: no psych history - Past Surgical History Surgical History: appendectomy, hysterectomy Additional surgical history: BENIGN TUMOR REMOVED FROM EYE - Social History Smoking Status: Former smoker Smokeless Tobacco Status: No Alcohol use: none Drug use: none - Family History Mother Living Status: Hx Family Cardiac Disorders: No Hx Family Respiratory Disorders: Yes (emphysema) Hx Family Cancer: No Hx Family GI Disorders: Yes (IBS) Hx Family Endocrine Disorder: No Hx Family Neuromuscular Disorders: No Hx Family Neurologic Disorders: No Hx Family HEENT Disorders: No Hx Family Autoimmune Disorders: No Internal Medicine - H&P: Meds Albuterol Neb [Proventil Neb] 2.5 mg IH Q4HR 12/30/16 [History] Albuterol Sulfate [Albuterol Inhaler] 1 puff IH PRN PRN 12/30/16 [History] Aspirin [Lo-Dose Aspirin EC] 81 mg PO DAILY 12/30/16 [History] Calcium Citrate/Vitamin D3 [Calcium Citrate - Vit D Caplet] 1 each PO DAILY [History] Cholecalciferol (D-3) [Vitamin D] 1,000 unit PO DAILY 12/30/16 [History] [place]-3 Fatty Acids [Fish Oil] 600 mg PO DAILY 12/30/16 [History] Quinapril HCl [Accupril] 40 mg PO DAILY 12/30/16 [History] Verapamil HCl [Verapamil ER] 240 mg PO DAILY 12/30/16 [History] hydroCHLOROthiazide [Hydrochlorothiazide] 25 mg PO DAILY 12/30/16 [History] Budesonide/Formoterol 160/4.5 [Symbicort 160/4.5] 2 puff IH BIDR #1 inhaler 09/22 [Rx] Tiotropium [Spiriva] 18 mcg IH DAILY #30 inh 01/04/17 [Rx] 3 Allergy/AdvReac Type Severity Reaction Status Date / Time allantoin Allergy Swelling Verified 12/30/16 20:46 of Lip/Tongue/Throat bee venom protein (honey bee) Allergy Swelling Verified 12/30/16 20:46 of Lip/Tongue/Throat bupropion [From Wellbutrin] Allergy Rash Verified 12/30/16 20:46 Iodinated Contrast- Oral and Allergy Rash Verified 12/30/16 20:46 IV Dye [Iodinated Contrast Media - Oral and] meloxicam Allergy Cramping Verified 12/30/16 20:46 of the Muscles Sulfa (Sulfonamide Allergy Swelling Verified 12/30/16 20:46 Antibiotics) of Lip/Tongue/Throat All Systems PM: A 10-system review of systems was performed and is negative for pertinent findings except as documented above in the HPI. Review of systems: General: Her weight has been stable since the December 2016 [facility] hospitalization at approximate 74 kg. Cardiovascular: He has a history of hypertension but denies ND heart failure angina DVT or pulmonary embolus. She thinks she had a heart cath approximately 2013 which did not result in intervention. Respiratory: As per history of present illness GI: She has a hiatal hernia with GERD. She has diverticular disease of the colon. She denies disorders of her liver gallbladder or exocrine pancreas : No history of hematuria dysuria or kidney stones Neurologic: No history of large distribution strokes or seizures Endocrine: She has hyperlipidemia but no known diabetes or thyroid disease Hematology/oncology: She had cervical dysplasia with hysterectomy which was apparently curative several years ago. She denies other internal malignancies or anemia Psychiatric: She denies anxiety depression or other mental health issues Musculoskeletal: She has DJD and osteoporosis but no known gout - Constitutional Vitals: Temp Pulse Resp BP Pulse Ox 97.8 F 98 22 183/84 98 04/04/18 06:00 04/04/18 06:00 04/04/18 08:06 04/04/18 06:00 04/04/18 08:06 Exam: Gen.: She is a well-developed well-nourished female lying in bed who appears in minimal respiratory distress at present time HEENT: Head is atraumatic and normocephalic. Eyes: EOMI. There is no scleral icterus. Mouth: Mucosa is moist. Neck: Supple and nontender. There is no thyromegaly or adenopathy noted. Heart: Regular without murmurs gallops or ectopics Lungs: She has prolonged expiratory phase and mild wheezing. Abdomen: Soft and nontender. No masses or guarding are noted. Extremities: There is no cyanosis edema or clubbing noted. Dorsalis pedis and posterior tibial pulses are 1-2 over 2 bilaterally. Neurologic: Mental status: She is talkative and a good historian. Cranial nerves: Smile is symmetric. Forehead wrinkles bilaterally. Tongue protrudes midline. EOMI. Motor: There is no pronator drift. Cerebellar: Finger to nose is intact bilaterally. Skin: Warm and dry Internal Med - H&P Results - Labs CBC & Chem 7: 04/04/18 02:20 04/04/18 02:20 Labs: Short CBC 04/03/18 04/04/18 Range/Units 19:55 02:20 WBC 10.1 11.3 H (4.3-11.1) K/mcL Hgb 12.3 12.3 (11.5-15.4) g/dL Hct 37.2 37.0 (35.3-44.9) % Plt Count 287 278 (140-400) K/mcL Neutrophils # 9.2 H 10.3 H (1.6-8.9) K/mcL BMP 04/03/18 04/04/18 19:55 02:20 Sodium 140 139 Potassium 3.5 3.7 Chloride 102 102 Carbon Dioxide 26 23 BUN 15 13 Creatinine 0.92 0.83 Glucose 169 H 182 H Calcium 9.5 9.6 Cardiac Enzymes 04/03/18 04/04/18 04/04/18 Range/Units 19:55 02:20 07:50 Troponin I < 0.03 < 0.03 < 0.03 (< 0.04) ng/mL Liver Function 04/03/18 Range/Units 19:55 Total Bilirubin 0.2 L (0.3-1.0) mg/dL AST 17 (13-39) Units/L ALT 19 (7-52) Units/L Alkaline Phosphatase 53 (34-104) Units/L Albumin 4.8 (3.5-5.7) g/dL - VTE Reasons for not Prescribing Prophylaxis: Treatment not Indicated - Low risk for VTE
[2018-04-04] MEDS: methylPREDNISolone 125 MG/2 ML VIAL IVP SCH ×2 (11:31→15:49)
--- NOTE | 2018-04-04 17:20 | Electrocardiograph Report ---
[address] [address] Test Date: 2018-04-03 Pat Name: Clary Tamez Department: [id number] Room: [facility] Gender: F Document Control Specialist: [id number] : 1945 Requested By: Shay Lopez Order Number: [id number] Reading MD: Caron Michaud Measurements Intervals [place] Rate: 100 P: 44 NE: 113 QRS: 48 QRSD: 86 T: 51 QT: 345 QTc: 402 Interpretive Statements SINUS TACHYCARDIA WITH SHORT NE INTERVAL NONSPECIFIC ST & T-WAVE ABNORMALITY ABNORMAL RHYTHM ECG Electronically Signed On 04-04-2018 17:18:44 EDT by Caron Michaud
--- NOTE | 2018-04-04 17:25 | Electrocardiograph Report ---
[address] [place], [place] [address] Test Date: 2018-04-03 Pat Name: Clary Tamez Department: [id number] Room: [facility] Gender: F Junior Art Director: [id number] : 1945 Requested By: Mary Anne Argueta Order Number: [id number] Reading MD: Caron Michaud Measurements Intervals [place] Rate: 103 P: 62 MN: 133 QRS: 58 QRSD: 77 T: 58 QT: 344 QTc: 404 Interpretive Statements SINUS TACHYCARDIA NONSPECIFIC ST & T-WAVE ABNORMALITY ABNORMAL RHYTHM ECG Electronically Signed On 04-04-2018 17:23:43 EDT by Caron Michaud
[2018-04-04] MEDS: Albuterol 2.5 MG/3 ML NEBULIZER IH PRN (21:16)
[2018-04-05] MEDS: Albuterol 2.5 MG/3 ML NEBULIZER IH PRN ×6 (03:54→22:05)
[2018-04-05 06:26] LABS: Basophils % 0.2 %; Hematocrit 37.7 % (35.3-44.9); Hemoglobin 12.3 g/dL (11.5-15.4); Immature Granulocytes % 1.4 % (0-4); Lymphocytes # 0.7 K/mcL (0.6-4.6); Lymphocytes % 3.9 %; Mean Corpuscular HGB Conc 32.6 g/dL (31.6-35.5); Mean Corpuscular Hemoglobin 29.1 pg (28.0-33.3); Mean Corpuscular Volume 89.1 fL (83.0-100.0); Mean Platelet Volume 10.3 fL (9.4-12.4); Monocytes % 5.4 %; Neutrophils # 16.3 K/mcL (1.6-8.9); Platelet Count 319 K/mcL (140-400); Red Blood Count 4.23 M/mcL (3.82-4.97); Segmented Neutrophils % 89.1 %
[2018-04-05] MEDS: Lactobacillus 1 EACH CAP.SPRINK PO SCH ×2 (08:07→20:20)
[2018-04-05] MEDS: hydroCHLOROthiazide 25 MG TABLET PO SCH (08:08)
[2018-04-05] MEDS: Verapamil ER (24 HR) 240 MG TABLET.ER PO SCH (08:08)
[2018-04-05] MEDS: Cholecalciferol (D-3) 1,000 UNIT TABLET PO SCH (08:08)
[2018-04-05] MEDS: Lisinopril 20 MG TABLET PO SCH (08:08)
[2018-04-05] MEDS: Aspirin Enteric Coated 81 MG Tablet PO SCH (08:08)
[2018-04-05] MEDS: Azithromycin 500 MG in D5% in Water 250 ML IVPB SCH (08:09)
[2018-04-05] MEDS: methylPREDNISolone 125 MG/2 ML VIAL IVP SCH ×3 (08:09→23:16)
[2018-04-05] MEDS: cefTRIAXone 1,000 MG in Water for inj. (sterile) 20 ML 10 ML IVP SCH (08:11)
[2018-04-05] MEDS: (Omega-3 Fatty Acids [Fish Oil] 600 MG) PO SCH (08:12)
[2018-04-05] MEDS: Budesonide/Formoterol 160/4.5 MDI IH SCH ×2 (09:23→22:00)
[2018-04-05] MEDS: Tiotropium 18 MCG inhalation IH SCH (09:23)
--- NOTE | 2018-04-05 09:52 | Internal Med Progress Note ---
Date of Encounter: 04/05/18 Time of Encounter: 09:45 - Assessment and plan (1) Acute exacerbation of chronic obstructive airways disease Current Visit: Yes Status: Acute Assessment and plan: April 05. Discontinue Rocephin and Zithromax and start Levaquin with doxycycline. Continue lactobacillus. Recheck labs in a.m. (2) Hypertension Current Visit: Yes Status: Chronic Assessment and plan: April 05. Blood pressure inadequately controlled. Add metoprolol to Accupril and HCTZ. Qualifiers: Hypertension type: essential hypertension Qualified Code(s): I10 - Essential (primary) hypertension (3) Allergic drug rash Current Visit: Yes Status: Acute Assessment and plan: April 05. Suspect due to Rocephin. Will discontinue present antibiotics and start Levaquin and doxycycline. Continue Solu-Medrol. Give Benadryl as needed. - Subjective Interval history: April 05. She had nausea last evening but feels improved now. She has developed pruritus and slight erythematous rash since starting antibiotics. She feels her breathing is minimally improved. - Constitutional Vitals: Temp Pulse Resp BP Pulse Ox 97.5 F L 89 24 156/92 97 04/05/18 07:02 04/05/18 07:02 04/05/18 09:28 04/05/18 07:02 04/05/18 09:28 Exam: Her lungs show mild prolonged expiratory phase with diffuse wheezing. She is minimally dyspneic on talking. I reviewed her medications and lab results. Internal Medicine: Result - Labs CBC & Chem 7: 04/05/18 05:20 04/04/18 02:20 Labs: Short CBC 04/05/18 Range/Units 05:20 WBC 18.3 H D (4.3-11.1) K/mcL Hgb 12.3 (11.5-15.4) g/dL Hct 37.7 (35.3-44.9) % Plt Count 319 (140-400) K/mcL Neutrophils # 16.3 H (1.6-8.9) K/mcL - VTE Reasons for not Prescribing Prophylaxis: Treatment not Indicated - Low risk for VTE Consult Discharge Plan - Plan Referrals: Desmnod Maier MD [Primary Care Provider] - 1 week
[2018-04-05] MEDS: Ondansetron ODT 4 MG TAB.RAPDIS SL PRN (14:03)
[2018-04-05] MEDS: Levofloxacin 500 MG/100 ML 500 MG/100 ML BAG IVPB SCH (14:03)
[2018-04-05] MEDS: Doxycycline 100 MG in 0.9 % Sodium Chloride Mini Bag 100 ML IVPB SCH ×2 (16:06→22:13)
[2018-04-05] MEDS ORDERED: Fluconazole 100 MG TABLET PO ONE (18:10)
[2018-04-06] MEDS: Albuterol 2.5 MG/3 ML NEBULIZER IH PRN ×4 (01:48→11:29)
[2018-04-06] MEDS: methylPREDNISolone 125 MG/2 ML VIAL IVP SCH ×2 (02:15→07:51)
[2018-04-06] MEDS: Ondansetron ODT 4 MG TAB.RAPDIS SL PRN (02:16)
[2018-04-06 06:23] LABS: Basophils % 0.2 %; Hematocrit 36.6 % (35.3-44.9); Immature Granulocytes % 1.7 % (0-4); Lymphocytes # 0.7 K/mcL (0.6-4.6); Lymphocytes % 4.2 %; Mean Corpuscular HGB Conc 32.8 g/dL (31.6-35.5); Mean Corpuscular Hemoglobin 29.3 pg (28.0-33.3); Mean Corpuscular Volume 89.3 fL (83.0-100.0); Mean Platelet Volume 10.3 fL (9.4-12.4); Monocytes # 0.6 K/mcL (0.0-1.3); Monocytes % 3.2 %; Neutrophils # 15.7 K/mcL (1.6-8.9); Platelet Count 296 K/mcL (140-400); Segmented Neutrophils % 90.7 %
[2018-04-06 07:21] VITALS: BP 162/78
[2018-04-06] MEDS: Aspirin Enteric Coated 81 MG Tablet PO SCH (07:50)
[2018-04-06] MEDS: Cholecalciferol (D-3) 1,000 UNIT TABLET PO SCH (07:50)
[2018-04-06] MEDS: hydroCHLOROthiazide 25 MG TABLET PO SCH (07:50)
[2018-04-06] MEDS: Lactobacillus 1 EACH CAP.SPRINK PO SCH (07:50)
[2018-04-06] MEDS ORDERED: Fluconazole 100 MG TABLET PO SCH (09:00)
[2018-04-06] MEDS: Budesonide/Formoterol 160/4.5 MDI IH SCH (09:13)
[2018-04-06] MEDS: Tiotropium 18 MCG inhalation IH SCH (09:13)
[2018-04-06] MEDS: Levofloxacin 500 MG/100 ML 500 MG/100 ML BAG IVPB SCH (10:04)
[2018-04-06] MEDS: Verapamil ER (24 HR) 240 MG TABLET.ER PO SCH (10:04)
[2018-04-06] MEDS: (Omega-3 Fatty Acids [Fish Oil] 600 MG) PO SCH (10:06)
[2018-04-06] MEDS: Lisinopril 20 MG TABLET PO SCH (10:06)
--- NOTE | 2018-04-06 10:26 | Discharge Summary ---
Date of Encounter: 04/06/18 Time of Encounter: 10:15 - Discharge Diagnosis (1) Acute exacerbation of chronic obstructive airways disease Priority: Primary Status: Acute (2) Hypertension Priority: Secondary Status: Chronic Qualifiers: Hypertension type: essential hypertension Qualified Code(s): I10 - Essential (primary) hypertension (3) Allergic drug rash Priority: Secondary Status: Acute Hospital course: Ms. Tamez is a 72 year old female who came to emergency room complaining of increased dyspnea over the past week with significant worsening over the past 3 days. She reports a cough that was nonproductive. She had a headache. She denies pain, nausea vomiting or diarrhea. She was evaluated in emergency room and felt to have exacerbation of COPD. She was admitted to [facility] floor for ongoing care needs. Initial orders were written by the emergency room physician. I saw her on April 04 and performed the history and physical. She was started on Rocephin and Zithromax and Solu-Medrol emergency room. He developed a rash so antibiotics were changed to doxycycline and Levaquin on April 05. Benadryl and steroids were continued. Her rash resolved. Her breathing improved but is not quite back to baseline by day of discharge. She will continue with her home pulmonary regimen and oral doxycycline and Levaquin with lactobacillus and Diflucan for 3 days at discharge. Blood pressure was above desirable range on admission. Metoprolol was added and will be continued at discharge. A 6 minute walk will be done prior to discharge. She wished to follow with Dr. Lopez and we will see him within 1 week. - Time Spent with Patient Total time spent providing and/or coordinating discharge services: - Discharge Medications Prescriptions: Doxycycline 100 mg PO BID #6 capsule Fluconazole [Diflucan] 100 mg PO DAILY #3 tablet Lactobacillus [Culturelle] 1 each PO BID #6 cap.sprink levoFLOXacin [Levaquin] 500 mg PO DAILY #3 tablet Metoprolol XL (24 HR) Succ [Toprol XL] 25 mg PO DAILY #30 tab.er.24h Home Medications: Albuterol Neb [Proventil Neb] 2.5 mg IH Q4HR 12/30/16 [History] Albuterol Sulfate [Albuterol Inhaler] 1 puff IH PRN PRN 12/30/16 [History] Aspirin [Lo-Dose Aspirin EC] 81 mg PO DAILY 12/30/16 [History] Calcium Citrate/Vitamin D3 [Calcium Citrate - Vit D Caplet] 1 each PO DAILY [History] Cholecalciferol (D-3) [Vitamin D] 1,000 unit PO DAILY 12/30/16 [History] [place]-3 Fatty Acids [Fish Oil] 600 mg PO DAILY 12/30/16 [History] Quinapril HCl [Accupril] 40 mg PO DAILY 12/30/16 [History] Verapamil HCl [Verapamil ER] 240 mg PO DAILY 12/30/16 [History] hydroCHLOROthiazide [Hydrochlorothiazide] 25 mg PO DAILY 12/30/16 [History] Budesonide/Formoterol 160/4.5 [Symbicort 160/4.5] 2 puff IH BIDR #1 inhaler 09/22 [Rx] Tiotropium [Spiriva] 18 mcg IH DAILY #30 inh 01/04/17 [Rx] Doxycycline 100 mg PO BID #6 capsule 04/06/18 [Rx] Fluconazole [Diflucan] 100 mg PO DAILY #3 tablet 04/06/18 [Rx] Lactobacillus [Culturelle] 1 each PO BID #6 cap.sprink 04/06/18 [Rx] Metoprolol XL (24 HR) Succ [Toprol XL] 25 mg PO DAILY #30 tab.er.24h 04/06/18 [ Rx] levoFLOXacin [Levaquin] 500 mg PO DAILY #3 tablet 04/06/18 [Rx] Allergies/Adverse Reactions: 3 Allergy/AdvReac Type Severity Reaction Status Date / Time allantoin Allergy Swelling Verified 12/30/16 20:46 of Lip/Tongue/Throat azithromycin Allergy Rash Verified 04/05/18 19:21 bee venom protein (honey bee) Allergy Swelling Verified 12/30/16 20:46 of Lip/Tongue/Throat bupropion [From Wellbutrin] Allergy Rash Verified 12/30/16 20:46 ceftriaxone Allergy Rash Verified 04/05/18 19:22 Iodinated Contrast- Oral and Allergy Rash Verified 12/30/16 20:46 IV Dye [Iodinated Contrast Media - Oral and] meloxicam Allergy Cramping Verified 12/30/16 20:46 of the Muscles Sulfa (Sulfonamide Allergy Swelling Verified 12/30/16 20:46 Antibiotics) of Lip/Tongue/Throat Date of admission: 04/04/18 11:30 Primary care physician: Shay Lopez MD - Constitutional Vitals: Temp Pulse Resp BP Pulse Ox 97.7 F 88 20 162/78 95 04/06/18 07:19 04/06/18 07:19 04/06/18 09:16 04/06/18 07:19 04/06/18 09:16 - Patient Status Disposition: Home, Self-Care Condition: Good Overall status at discharge: patient is progressing back to baseline - Discharge Instructions - Diet and Activity Activity: resume usual activities as tolerated Diet: advance to your usual diet - VTE Reasons for not Prescribing Prophylaxis: Treatment not Indicated - Low risk for VTE
== END 2018-04-06 14:00 | disposition home or self-care (01) | DRG 192 ==
LOC: EMEROOPIK 14:56 → INPPIK 14:56
PROVIDERS: ADMIT Family Medicine; ATTEND Internal Medicine